=== PATIENT | male | born 1990 | race African-American/Black ===

== ENCOUNTER 2019-03-27 22:56 | Emergency (ER) | payer BC ==
[~2019-03-27] VITALS: Ht 177.8 cm; Wt 84.3 kg
[2019-03-27 23:01] VITALS: BP 167/71; PULSE 119; RESP 18; Ht 177.8 cm; Wt 84.3 kg
[2019-03-28] MEDS ORDERED: KETOROLAC 30 MG INJ IM STA (00:12)
[2019-03-28] MEDS ORDERED: CEFTRIAXONE 250 MG INJ IM ONE (00:30)
[2019-03-28] MEDS ORDERED: LIDOCAINE 1% (MDV) 20 ML INJ SC ONE (00:30)
[2019-03-28] MEDS ORDERED: DIPHTH/TET/ACEL PERTUSS (ADULT) 0.5 ML VIAL IM* ONE (00:30)
[2019-03-28] MEDS ORDERED: CEPH-443 PO (01:11)
--- NOTE | 2019-03-28 06:05 | ERD ---
ER Documentation Chief Complaint Chief Complaint LEFT LAC X3DAYS; STILL BLEEDING; CUT ON GLASS HPI Patient is a 28-year-old male presenting to the ED for left laceration on his left elbow. Patient states that happened 3 days ago and he cut it on glass. Patient states he did not want to come in but now it is still open he wants to get it checked out see if and get stitches. Patient does not know when his last tetanus shot was. Patient denies any allergies to medication. Patient denies any past medical history. States that he has 2 out of 10 pain ROS All systems reviewed and are negative except as per history of present illness. Medications Home Meds Active Scripts Cephalexin* (Keflex*) 500 Mg Capsule, 500 MG PO BID for 5 Days, CAP Prov:MABEL PARKER PA-C 03/28/19 PMhx/Soc Medical and Surgical Hx: pt denies Surgical Hx Hx Respiratory Disorders: Yes (ASTHMA) Hx Alcohol Use: Yes Hx Tobacco Use: No Smoking Status: Never smoker FmHx Family History: No diabetes, No coronary disease, No other Physical Exam Vitals Vital Signs Date Temp Pulse Resp B/P (MAP) Pulse Ox O2 O2 Flow FiO2 Time Delivery Rate 03/27/19 97.5 119 18 167/71 99 23:01 (103) Physical Exam Const: Mild distress Head: Atraumatic Eyes: Normal Conjunctiva ENT: Normal External Ears, Nose and Mouth. Neck: Full range of motion. No meningismus. Resp: Clear to auscultation bilaterally Cardio: Regular rate and rhythm, no murmurs Skin: 3 cm laceration left elbow. Results 24 hrs Current Medications Medications Dose Sig/Bobby Start Time Status Last (Trade) Ordered Route PRN Stop Time Admin Dose Reason Admin Diphtheria/ 0.5 ml ONCE ONCE 03/28/19 DC 03/28/19 Tetanus/Acell IM* 00:30 00:35 Pertussis 03/28/19 00:31 (Adacel) Lidocaine 20 ml ONCE ONCE 03/28/19 DC (Xylocaine SC 00:30 1% (Mdv) 20 03/28/19 00:31 ml) Ceftriaxone 250 mg ONCE ONCE 03/28/19 DC 03/28/19 Sodium IM 00:30 00:36 (Rocephin) 03/28/19 00:31 Ketorolac 30 mg ONCE STAT 03/28/19 DC 03/28/19 Tromethamine IM 00:12 00:36 (Toradol) 03/28/19 00:15 Procedures/MDM Procedures: LACERATION: The patient was verbally consented prior to procedure. Patient was explained the risks, benefits and alternatives to this procedure. Location: Left Elbow Length: 3 cm Anesthesia: local 1% lidocaine, 5 cc Inspection: The wound was thoroughly explored and no foreign bodies, deep tissue, tendon or structural injuries were noted. Repair: The area was prepared and draped in the usual sterile manner with the wound exposed. 3 sutures were placed with good wound closure and wound approximation. Bleeding was minimal. The patient tolerated the procedure well with no complications. The wound was dressed with bacitracin and sterile gauze. The patient was neurovascularly intact post-procedure. Post-procedural wound care was discussed with the patient. The patient was advised that if they develop fever, chills, discharge or discomfort to return to the ER immediatly. I discussed with the patient the importance of having a wound check in 2 days and the importance of having the sutures removed within the appropriate time. Medications given in ER: Ceftriaxone Tdap Toradol Patient tolerated medication well with no adverse reactions. Patient reported improvement in pain. Medical decision makin-year-old male presented to ED for laceration on his left elbow that happened 3 days ago. Patient states that he wants to get stitches. Advised the patient that we normally do not suture open wounds that have been open for that long due to increased risk of bacteria. I advised the patient to have the treated with antibiotics. Patient was given ceftriaxone in the ED. The laceration is 3 cm on his left elbow is very superficial. The patient has good pulse motor sensation extremity. A total of 3 40 simple interrupted sutures were placed. The patient was given Toradol for pain and his Tdap was updated. At this time I have low suspicion for neurovascular injury, compartment syndrome, sepsis, infection, foreign body retention. Advised patient he needs return to ER in 2 days for wound check and follow-up in 7 to 10 days to have the sutures removed. Patient is in compliant with treatment plan had no further questions upon discharge. Prescription for home: Keflex I have discussed with the patient proper use and common side effects to expert with the medication . I advised the patient/family to speak with the [facility] dispensing the medication to be advised of any potential drug interactions with other medication or supplements they may be taking. Discharge: At this time, patient is stable for discharge and outpatient management. I have instructed the patient to follow-up with his\her primary care physician in 1 to 2 days. I have discussed with the patient the possibility of needing to see a specialist for further work-up and imaging studies if symptoms persist. I have instructed the patient to promptly return to the ER for any new or worsening symptoms including increased pain, fever, nausea, vomiting, weakness or LOC. The patient and\or family expressed understanding of and agreement with this plan. All questions were answered. Home care instructions were provided. Disclaimer: Inadvertent spelling and grammatical errors are likely due to EHR\dictation software use and do not reflect on the overall quality of patient care. Also, please note that the electronic time recorded on the note does not necessarily reflect the actual time of the patient encounter. Departure Diagnosis: Primary Impression: Laceration Condition: Stable Patient Instructions: Laceration, All Referrals: [facility] YOU HAVE RECEIVED A MEDICAL SCREENING EXAM AND THE RESULTS INDICATE THAT YOU DO NOT HAVE A CONDITION THAT REQUIRES URGENT TREATMENT IN THE EMERGENCY DEPARTMENT. FURTHER EVALUATION AND TREATMENT OF YOUR CONDITION CAN WAIT UNTIL YOU ARE SEEN IN YOUR DOCTORS OFFICE WITHIN THE NEXT 1-2 DAYS. IT IS YOUR RESPONSIBILITY TO MAKE AN APPOINTMENT FOR FOLOW-UP CARE. IF YOU HAVE A PRIMARY DOCTOR --you should call your primary doctor and schedule an appointment IF YOU DO NOT HAVE A PRIMARY DOCTOR YOU CAN CALL OUR PHYSICIAN REFERRAL HOTLINE AT IF YOU CAN NOT AFFORD TO SEE A PHYSICIAN YOU CAN CHOSE FROM THE FOLLOWING [facility] CLINICS [facility] [address] [facility] [address] [facility] [address] [facility] [address] [facility] [address] [facility]. [facility]. [address] [facility] YOU HAVE RECEIVED A MEDICAL SCREENING EXAM AND THE RESULTS INDICATE THAT YOU DO NOT HAVE A CONDITION THAT REQUIRES URGENT TREATMENT IN THE EMERGENCY DEPARTMENT. FURTHER EVALUATION AND TREATMENT OF YOUR CONDITION CAN WAIT UNTIL YOU ARE SEEN IN YOUR DOCTORS OFFICE WITHIN THE NEXT 1-2 DAYS. IT IS YOUR RESPONSIBILITY TO MAKE AN APPOINTMENT FOR FOLOW-UP CARE. IF YOU HAVE A PRIMARY DOCTOR --you should call your primary doctor and schedule and appointment IF YOU DO NOT HAVE A PRIMARY DOCTOR YOU CAN CALL OUR PHYSICIAN REFERRAL HOTLINE AT . IF YOU CAN NOT AFFORD TO SEE A PHYSICIAN YOU CAN CHOSE FROM THE FOLLOWING [facility] INSTITUTIONS: [facility] [address] [place] [address] [facility] [address] [place] [address] [facility] [address] [place] [address] Additional Instructions: Follow up in 2 days in your clinic for wound check.Return to this facility in 2 DAYS for a follow-up exam.Return sooner if your condition worsens. MABEL PARKER PA-C Mar 28, 2019 06:05
== END 2019-03-28 01:25 | disposition home or self-care (01) ==
LOC: FTE 22:56
DX: S51.012A Laceration without foreign body of left elbow, initial encounter (principal); J45.909 Unspecified asthma, uncomplicated; W25.XXXA Contact with sharp glass, initial encounter; Y92.9 Unspecified place or not applicable; Z23 Encounter for immunization
CPT/HCPCS: 12002; 90471; 90715; 96372; 99284; J0696; J1885; Z7610